=== PATIENT | male | born 1985 | race Caucasian/White ===

== ENCOUNTER 2017-11-26 04:57 | Outpatient (CLI) | payer BC | END 2017-11-26 23:59 | disposition home or self-care (01) | LOC: DIABETIC 04:57 | PROVIDERS: ATTEND Specialist | DX: E11.65 Type 2 diabetes mellitus with hyperglycemia (principal) | CPT/HCPCS: G0108 ==

== ENCOUNTER 2018-03-24 02:29 | Outpatient (CLI) | payer BC | END 2018-03-24 23:59 | disposition home or self-care (01) | LOC: DIABETIC 02:29 | PROVIDERS: ATTEND Specialist | DX: E11.65 Type 2 diabetes mellitus with hyperglycemia (principal); Z79.4 Long term (current) use of insulin | CPT/HCPCS: G0108 ==

== ENCOUNTER 2018-06-24 03:14 | Outpatient (CLI) | payer BC | END 2018-06-24 23:59 | disposition home or self-care (01) | LOC: DIABETIC 03:14 | PROVIDERS: ATTEND Specialist | DX: E11.65 Type 2 diabetes mellitus with hyperglycemia (principal); Z79.4 Long term (current) use of insulin | CPT/HCPCS: G0108 ==

== ENCOUNTER 2019-02-19 02:28 | Outpatient (CLI) | payer BC | END 2019-02-19 23:59 | disposition home or self-care (01) | LOC: DIABETIC 02:28 | PROVIDERS: ATTEND Specialist | DX: E10.65 Type 1 diabetes mellitus with hyperglycemia (principal); Z79.4 Long term (current) use of insulin; Z79.899 Other long term (current) drug therapy | CPT/HCPCS: G0108 ==

== ENCOUNTER 2019-05-20 02:35 | Outpatient (CLI) | payer BC | END 2019-05-20 23:59 | disposition home or self-care (01) | LOC: DIABETIC 02:35 | PROVIDERS: ATTEND Specialist | DX: E10.65 Type 1 diabetes mellitus with hyperglycemia (principal) | CPT/HCPCS: G0108 ==

== ENCOUNTER 2019-11-04 02:06 | Outpatient (CLI) | payer BC | END 2019-11-04 23:59 | disposition home or self-care (01) | LOC: DIABETIC 02:06 | PROVIDERS: ATTEND Specialist | DX: E10.65 Type 1 diabetes mellitus with hyperglycemia (principal) | CPT/HCPCS: G0108 ==